=== PATIENT | female | born 1960 | race Caucasian/White ===

== ENCOUNTER 2020-03-10 17:12 | Outpatient (REF) | payer MEDICAID, SELFPAY | END 2020-03-10 17:13 | disposition home or self-care (01) | LOC: HO.LAB 17:12 | PROVIDERS: PCP Internal Medicine; Visit Provider Internal Medicine | DX: Z20.828 Contact with and (suspected) exposure to other viral communicable diseases (principal) | CPT/HCPCS: 87635 ==

== ENCOUNTER 2020-04-13 11:21 | Outpatient (REF) | payer MEDICAID, SELFPAY | END 2020-04-13 11:22 | disposition home or self-care (01) | LOC: HO.LAB 11:21 | PROVIDERS: Visit Provider Internal Medicine | DX: Z20.828 Contact with and (suspected) exposure to other viral communicable diseases (principal) | CPT/HCPCS: C9803; U0003 ==

== ENCOUNTER 2020-09-22 13:24 | Outpatient (REF) | payer MEDICAID, SELFPAY ==
--- NOTE | ~2020-09-22 | XR_ITS ---
EXAMINATION: XR RIGHT ANKLE AND RIGHT SHOULDER CLINICAL INFORMATION: Pain. COMPARISON: None. TECHNIQUE: 3-view right ankle and 4-view right shoulder. FINDINGS: There is no evidence of acute fracture or dislocation of the right ankle. Right ankle mortise appears intact. No significant soft tissue swelling seen. There is a calcaneal spur site of insertion of the Achilles tendon. There is no evidence of acute fracture or dislocation of the right shoulder. There is calcific tendinitis present. Glenohumeral joint appears unremarkable. No significant abnormality of the acromioclavicular joint. No widening of the coracoclavicular space is seen. XR/XR ankle RT min 3V IMPRESSION: No significant bony abnormality of the right ankle identified. Calcific tendinitis of the right shoulder.
--- NOTE | ~2020-09-22 | XR_ITS ---
EXAMINATION: XR RIGHT ANKLE AND RIGHT SHOULDER CLINICAL INFORMATION: Pain. COMPARISON: None. TECHNIQUE: 3-view right ankle and 4-view right shoulder. FINDINGS: There is no evidence of acute fracture or dislocation of the right ankle. Right ankle mortise appears intact. No significant soft tissue swelling seen. There is a calcaneal spur site of insertion of the Achilles tendon. There is no evidence of acute fracture or dislocation of the right shoulder. There is calcific tendinitis present. Glenohumeral joint appears unremarkable. No significant abnormality of the acromioclavicular joint. No widening of the coracoclavicular space is seen. XR/XR shoulder RT min 2V IMPRESSION: No significant bony abnormality of the right ankle identified. Calcific tendinitis of the right shoulder.
== END 2020-09-22 13:25 | disposition home or self-care (01) ==
LOC: HO.XRAY 13:24
PROVIDERS: PCP Internal Medicine; Visit Provider Internal Medicine
DX: M25.511 Pain in right shoulder (principal); M25.571 Pain in right ankle and joints of right foot
CPT/HCPCS: 73030; 73610

== ENCOUNTER 2020-11-09 08:46 | Outpatient (REF) | payer MEDICAID, SELFPAY ==
--- NOTE | ~2020-11-09 | MM_ITS ---
EXAMINATION: MM SCREENING DIGITAL BREAST TOMOSYNTHESIS, BILATERAL CLINICAL INFORMATION: Screening. Asymptomatic. The lifetime risk of breast cancer based on the Tyrer-Cuzick Model is 4%. COMPARISON: Mammography: 02/28/2019, 04/13/2017, 08/05/2016; targeted right breast ultrasound 04/13/2017. TECHNIQUE: Digital breast tomosynthesis is performed in both the craniocaudal and mediolateral oblique views along with computer-aided detection (CAD). Synthesized 2D images are generated from the tomosynthesis. Additional exaggerated right CC view is provided. FINDINGS: The breasts are heterogeneously dense, which may obscure small masses (ACR BI-RADS breast composition Category c). There are no significant masses, abnormal calcifications, or other abnormalities. Parenchymal pattern is similar to prior studies. Again, there is a benign heavily calcified nodule posterior 7:00 left breast consistent with degenerating fibroadenoma. There are fibrocystic changes again noted outer right breast. The axilla and skin contours are unremarkable. MM/MM tomosynthesis screening BI IMPRESSION: No significant changes from prior exams. ASSESSMENT: BI-RADS 2: Benign RECOMMENDATION: Routine annual mammography screening. This patient's information was entered into a reminder system with a target due date for their next mammogram.
== END 2020-11-09 08:47 | disposition home or self-care (01) ==
LOC: HO.MAMMO 08:46
PROVIDERS: Visit Provider Internal Medicine
DX: Z12.31 Encounter for screening mammogram for malignant neoplasm of breast (principal)
CPT/HCPCS: 77063; 77067

== ENCOUNTER 2021-11-10 09:43 | Outpatient (REF) | payer MEDICAID, SELFPAY ==
--- NOTE | ~2021-11-10 | MM_ITS ---
EXAMINATION: MM SCREENING DIGITAL BREAST TOMOSYNTHESIS, BILATERAL CLINICAL INFORMATION: Screening. Asymptomatic. The lifetime risk of breast cancer based on the Tyrer-Cuzick Model is 4%. COMPARISON: Mammography: 11/09/2020, 02/28/2019, 04/13/2017, 08/05/2016 TECHNIQUE: Digital breast tomosynthesis is performed in both the craniocaudal and mediolateral oblique views along with computer-aided detection (CAD). Synthesized 2D images are generated from the tomosynthesis. FINDINGS: The breasts are heterogeneously dense, which may obscure small masses (ACR BI-RADS breast composition Category c). Parenchymal pattern is similar to prior exams. There is no interval mass or architectural abnormality or abnormal calcifications. Benign heavily calcified nodule posterior 7:00 left breast is consistent with degenerating fibroadenoma and stable. The axilla and skin contours are unremarkable. MM/MM tomosynthesis screening BI IMPRESSION: No mammographic evidence of malignancy. ASSESSMENT: BI-RADS 2: Benign RECOMMENDATION: Routine annual mammography screening. This patient's information was entered into a reminder system with a target due date for their next mammogram.
== END 2021-11-10 09:44 | disposition home or self-care (01) ==
LOC: HO.MAMMO 09:43
PROVIDERS: Visit Provider Internal Medicine
DX: Z12.31 Encounter for screening mammogram for malignant neoplasm of breast (principal)
CPT/HCPCS: 77063; 77067

== ENCOUNTER → 2022-03-10 11:01 | Outpatient (BNVA) | payer MEDICAID, SELFPAY | PROVIDERS: PCP Internal Medicine; Visit Provider Physician Assistant | DX: M75.31 Calcific tendinitis of right shoulder (principal) | CPT/HCPCS: 99202 ==

== ENCOUNTER 2022-05-06 09:04 | Emergency (ER) | payer MEDICAID, SELFPAY ==
[2022-05-06 09:26] VITALS: BP 145/74; PULSE 125; RESP 20; TEMP 37.6; O2SAT 99; BMI 24.2
[2022-05-06 09:42] LABS: MANUAL DIFF FLAG NO
[2022-05-06 09:44] LABS: Basophils Percent Auto 0.3 % (0-2); Eosinophils Percent Auto 0.2 % (0-4); Hematocrit 37.5 % (37.0-47.0); Hemoglobin 12.6 g/dl (12.0-16.0); Imm Gran Abs Auto 0.01 X10*3/uL (0.00-0.03); Imm Gran Pct Auto 0.2 % (0.0-0.4); Lymphocytes Absolute Auto 1.5 X10*3/uL (1.2-4.9); Lymphocytes Percent Auto 24.3 % (20-40); Mean Corpuscular HGB Conc 33.6 g/dl (31.0-35.0); Mean Corpuscular Hemoglobin 27.6 pg (27.0-33.0); Mean Corpuscular Volume 82.1 fL (80.0-98.0); Mean Platelet Volume 9.4 fL (9.4-12.3); Monocytes Absolute Auto 0.7 X10*3/uL (0.1-1.2); Monocytes Percent Auto 11.7 % (2-11); Neutrophils Absolute Auto 3.9 x10*3/uL (2.0-8.3); Neutrophils Percent Auto 63.3 % (45-73); Platelet Count 344 X10*3/uL (160-400); Red Blood Count 4.57 X10*6/uL (4.20-5.50); Red Cell Distribution Width 12.5 % (11.0-16.0); White Blood Count 6.2 X10*3/uL (4.8-10.8)
[2022-05-06 10:00] LABS: IDNOW Serial# BCCEAD1C; Influenza A Negative (Negative); Influenza B2 Negative (Negative)
[2022-05-06 10:01] LABS: COVID-19 Test Negative (Negative); IDNOW Serial# 16C4AD1C
[2022-05-06 10:05] LABS: Anion Gap 13 (12-20); Blood Urea Nitrogen 10 mg/dL (9-16); Calcium 9.2 mg/dL (8.4-10.2); Carbon Dioxide 23 mmol/L (22-29); Chloride 102 mmol/L (96-108); Estimated Glomerular Filt Rate > 60; Glucose Random 159 mg/dL (60-115); Potassium 3.7 mmol/L (3.3-5.1); Sodium 134 mmol/L (135-145)
[2022-05-06 10:28] VITALS: BP 124/75; PULSE 106; RESP 14; TEMP 37; O2SAT 98
--- NOTE | 2022-05-06 10:55 | ED.GENADULT ---
HPI - General Adult General Chief complaint: General Medical Stated complaint: Head Back Pain Time Seen by Provider: 05/06/22 10:33 Source: patient and technician anatomic pathology Mode of arrival: ambulatory Limitations: language barrier History of Present Illness HPI narrative: 62-year-old female with a history of osteoporosis, osteoarthritis presents to headache, tactile temperature, dry eyes, cough, mouth dry, body aches, fatigue since yesterday. Also a rash to her right buttocks which has been there for several weeks. Patient denies any shortness of breath, chest pain, vomiting, diarrhea, neck pain or neck stiffness. Related Data Home Medications Medication Instructions Recorded Confirmed diclofenac sodium 1 % topical gel 2 g topical TID 03/10/22 ibuprofen 400 mg tablet 400 - 800 mg PO Q6-8H PRN 03/10/22 Previous Rx's Medication Instructions Recorded clotrimazole 1 % topical cream 1 appl topical BID 4 weeks #30 05/06/22 grams Allergies Allergy/AdvReac Type Severity Reaction Status Date / Time No Known Allergies Allergy Verified 05/06/22 09:30 [No Known Allergies*] Review of Systems Review of Systems: Yes all other systems are reviewed and are negative Constitutional: Constitutional: Reports no additional constitutional complaints, Reports body ache(s), Denies chills, Denies fever(s), Reports headache(s) and Denies weakness Eyes: Eyes: Reports no additional eye complaints and Denies change in vision ENT: Reports system reviewed and no additional complaints, except as documented, Denies dizziness, Reports headache(s), Reports nasal congestion, Denies nasal discharge, Denies neck pain and Denies sore throat Cardiovascular: Cardiovascular: Reports no additional cardiovascular complaints, Denies chest pain, Denies leg edema and Denies dyspnea Respiratory: Respiratory: Reports no additional respiratory complaints, Reports cough and Denies dyspnea Gastrointestinal: Gastrointestinal: Reports no additional gastrointestinal complaints, Denies abdominal pain, Denies diarrhea, Denies nausea and Denies vomiting Genitourinary: Genitourinary: Reports no additional female genitourinary complaints and Denies urinary incontinence Musculoskeletal: Musculoskeletal: Reports no additional musculoskeletal complaints, Denies back pain, Denies arthralgias, Denies joint swelling, Denies neck pain, Denies numbness and Denies tingling Integumentary/Breasts: Skin/Breast: Reports system reviewed and no additional complaints, except as docu and Denies rash Neurologic: Reports system reviewed and no additional complaints, except as documented, Denies dizziness, Reports headache(s), Denies numbness, Denies tingling and Denies weakness PMFSH Past Medical History Attestation statement: The following information was validated with the patient. 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 Physical Exam ED Vital Signs: Vital Signs - 24 hr 05/06/22 09:26 05/06/22 10:28 Temperature 99.7 F 98.6 F Pulse Rate 125 H 106 H Respiratory Rate 20 14 Blood Pressure 145/74 H 124/75 Pulse Oximetry 99 98 Oxygen Delivery Method Room Air Room Air BMI result Body Mass Index 24.2 Const General: cooperative, healthy appearing and comfortable Orientation/consciousness: patient oriented x3 Limitations: no limitations HENMT Head: Yes normal to inspection Ears: hearing grossly normal bilaterally and TM's normal bilaterally General nose exam: Normal external nose present Face and sinus: Yes normal facial exam Mouth: Normal oral and palatal mucosa present Throat: Yes posterior oropharynx normal, Yes tonsils normal and Yes uvula midline Eyes General: appearance normal, both eyes and all related structures Pupils: Equal, round and reactive pupils present Neck Neck: Yes normal visual inspection, Yes full ROM, Yes no lymphadenopathy and Yes no meningeal signs Chest Chest palpation & inspection: normal inspection of the chest Resp Effort & Inspection: normal respiratory effort Auscultation: clear to auscultation bilaterally Cardio Rate: regular rate Rhythm: regular rhythm Peripheral pulses: Peripheral pulses 2+ throughout GI Inspection: Yes normal to inspection Palpation (GI): Soft to palpation and nontender General: Yes no CVA tenderness Back/Spine/Pelvis Back: no CVA tenderness Thoracic/Lumbar Spine: thoracic and lumbar spine normal to inspection Skin Other: To the right buttocks there is a circular lesion with clear demarcation lines around the border and a central area of scaling Neuro General: patient oriented x3, moves all extremities and no meningeal signs Cranial nerves: Yes Equal, round and reactive pupils present and Yes Midline tongue present Cognition (Neuro): normal cognition Gait exam (Neuro): Normal gait present Motor exam (neuro): 5/5 motor strength present throughout Sensory Exam: Normal double simultaneous stimulation for sensation Extrem General: Yes normal to inspection, Yes no pedal edema and Yes no calf tenderness Course Course Course Narrative: Labs are unremarkable. Viral testing is negative. Likely viral syndrome. Recommend supportive care at home. Reviewed worrisome signs symptoms of when to return to the emergency room. Comfortable plan for discharge home. Medical Decision Making Medical Decision Making [facility] Narrative: This is a 62-year-old female who presents with flu-like symptoms since yesterday. On arrival vitals are stable. Afebrile. Lungs are clear. Neck is supple, no meningeal signs or lymphadenopathy. Abdomen soft nontender. Overall nontoxic appearing. Will check labs, viral testing. Patient also concern of a rash of her right buttocks which is consistent with tinea. Patient prescribed topical antifungal Differential Diagnoses: Differential diagnosis (Viral syndrome) Lab Attestation: I reviewed the patient's lab results. Discharge Plan Discharge Clinical Impression: Acute viral syndrome, Tinea Patient Disposition: Home, Self-Care Instructions: Viral Syndrome (ED), Skin Yeast Infection (ED) Additional Instructions: Las pruebas de gripe y COVID son negativas Contin?e con Motrin o Tylenol seg?n sea necesario Aumentar los l?quidos en casa Aplicar la crema t?pica en la rehana afectada Prescriptions: New clotrimazole 1 % cream 1 appl topical BID 28 Days Qty: 30 0RF No Action ibuprofen 400 mg tablet 400 - 800 mg PO Q6-8H PRN diclofenac sodium 1 % gel 2 g topical TID Referrals: Reanna Rossi MD [Primary Care Provider] - 5 days (for persistent symptoms ) Stand Alone Forms: Work/School Release Interventions: ED Discharge Assessment Last Done: 05/06/22 11:26 Discharge Date/Time: 05/06/22 11:27 Print Language: Vietnamese
== END 2022-05-06 11:27 | disposition home or self-care (01) ==
PROVIDERS: Emergency Provider Emergency Medicine Emergency Medical Services; PCP Internal Medicine
DX: B34.9 Viral infection, unspecified (principal); R51.9 Headache, unspecified; B35.9 Dermatophytosis, unspecified; M54.2 Cervicalgia; Z20.822 Contact with and (suspected) exposure to COVID-19; Z79.899 Other long term (current) drug therapy
CPT/HCPCS: 80048; 85025; 87502; 87635; 99283; 99284

== ENCOUNTER 2022-06-15 10:15 | Outpatient (REF) | payer MEDICAID, SELFPAY ==
--- NOTE | ~2022-06-15 | MM_ITS ---
EXAMINATION: BONE DENSITOMETRY CLINICAL INDICATION: Osteoporosis. COMPARISON: Baseline BD dated 11/16/2017. TECHNIQUE: Using a GlassUp DXA System (software version: 13.1) manufactured by [employer], dual-energy x-ray absorptiometry was performed of the lumbar spine and left hip. The images are of good technical quality. Summary results are attached. FINDINGS: AP SPINE L1-L4: Current: BMD 1.010 g/cm2, Z-score 0.1, T-score -1.4, osteopenia, 6.8% decrease from baseline (<5% change is not significant). Baseline: BMD 1.084 g/cm2. LEFT FEMUR, NECK: Current: BMD 0.845 g/cm2, Z-score 0.1, T-score -1.4, osteopenia. Baseline: BMD 0.867 g/cm2. LEFT FEMUR, TOTAL: Current: BMD 0.854 g/cm2, Z-score -0.1, T-score -1.2, osteopenia, 2.0% decrease from baseline (<5% change is not significant). Baseline: BMD 0.871 g/cm2. IDENTIFIED RISK FACTORS: Frontal hip fracture. Secondary osteoporosis (early menopause). HISTORY OF FRACTURE: None listed. MEDICATIONS: None listed. MM/XR DEXA axial skeleton IMPRESSION: 1. DIAGNOSIS: Osteopenia based on the lowest T-score value of -1.4 in the lumbar spine and femoral neck applying World Health Organization criteria. 2. 10-YEAR FRACTURE RISK PREDICTION, FRAX: Major osteoporotic fracture (clinical spine, forearm, hip or shoulder) 8.3%. Hip fracture 0.4%. 3. Treatment Recommendations: NOF guidelines recommend consideration for treatment in postmenopausal women and men age 50 and older presenting with the following: -A hip or vertebral (clinical or morphometric) fracture. -T-score less than or equal to -2.5 at the femoral neck or spine after appropriate evaluation to exclude secondary causes. -Low bone mass at the hip or spine and a 10-year fracture probability by FRAX of greater than or equal to 3% for hip fracture or greater than or equal to 20% for major osteoporotic fracture based on the [place] adapted WHO algorithm. 4. Other Recommendations: All treatment decisions require clinical judgment and consideration of individual patient factors, including patient preferences, comorbidities, previous drug use, risk factors not captured in the FRAX model (e.g. frailty, falls, vitamin D deficiency, increased bone turnover, interval significant decline in bone density) and possible under or overestimation of fracture risk by FRAX. Additional medical evaluation for secondary cause of low bone mineral density may be appropriate. FUTURE SCAN RECOMMENDATION: People with diagnosed cases of osteoporosis or at high risk for fracture should have regular bone mineral density tests. For patients eligible for Medicare, routine testing is allowed once every 2 years. The testing frequency can be increased to one year for patients who have rapidly progressing disease, those who are receiving or discontinuing medical therapy to restore bone mass, or have additional risk factors.
== END 2022-06-15 10:16 | disposition home or self-care (01) ==
LOC: HO.MAMMO 10:15
PROVIDERS: PCP Internal Medicine; Visit Provider Internal Medicine
DX: Z13.820 Encounter for screening for osteoporosis (principal); Z78.0 Asymptomatic menopausal state; M81.0 Age-related osteoporosis without current pathological fracture
CPT/HCPCS: 77080

== ENCOUNTER 2023-02-27 08:35 | Outpatient (REF) | payer MEDICAID, SELFPAY ==
[2023-02-27 12:01] LABS: Estimated Average Glucose 140 mg/dL; Hemoglobin A1c % 6.5 % (<6.0)
[2023-02-27 12:15] LABS: Cholesterol 155 mg/dL (<200); HDL Cholesterol 40 mg/dL (>40); LDL Cholesterol Calculated 84 mg/dL (<100); Triglycerides 159 mg/dL (<150)
[2023-02-27 12:41] LABS: Anion Gap 14 (12-20); Blood Urea Nitrogen 12 mg/dL (9-16); Calcium 9.1 mg/dL (8.4-10.2); Carbon Dioxide 23 mmol/L (22-29); Chloride 106 mmol/L (96-108); Estimated Glomerular Filt Rate > 60; Glucose Random 109 mg/dL (60-115); Potassium 4.5 mmol/L (3.3-5.1); Sodium 138 mmol/L (135-145)
[2023-02-27 13:06] LABS: Reflex LDLD? No
== END 2023-02-27 08:36 | disposition home or self-care (01) ==
LOC: HO.HHCL 08:35
PROVIDERS: Visit Provider Internal Medicine
DX: R73.01 Impaired fasting glucose (principal); E78.2 Mixed hyperlipidemia
CPT/HCPCS: 36415; 80048; 80061; 83036

== ENCOUNTER 2023-11-20 13:38 | Outpatient (REF) | payer OTHER, SELFPAY ==
[2023-11-22 12:23] LABS: HPV mRNA E6/E7 Not Detected (Not Detected)
== END 2023-11-20 13:39 | disposition home or self-care (01) ==
LOC: HO.LNP 13:38
PROVIDERS: PCP Internal Medicine; Visit Provider Obstetrics & Gynecology
DX: Z01.419 Encounter for gynecological examination (general) (routine) without abnormal findings (principal); N94.89 Other specified conditions associated with female genital organs and menstrual cycle
CPT/HCPCS: 87624; 88175; 99386

== ENCOUNTER 2023-11-20 13:38 | Outpatient (AMB) | payer OTHER, SELFPAY ==
--- NOTE | 2023-11-20 13:57 | MHC.OFFVIS ---
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 No complaints. Last Pap/HPV was in 2018 negative Last Mammogram was in 11/17 was BI-RADS 2 No previous screening Colonoscopy Last DEXA scan was done in 06/20 was in the low risk category with no evidence of osteoporosis PFSH Medical History Hyperlipidemia Seasonal allergic reaction Surgical History Hx of tubal ligation Family History Mother HTN (hypertension) Diabetes Sister Kidney disease Father Lung cancer Throat cancer Social History Household Members: Spouse Household Members Other:: daughter Housing: Apartment Alcohol intake: current Alcohol intake frequency: holidays/special occasions only Patient Tobacco Use Status: Never used Tobacco Current occupational status: employed 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 Sexual orientation: Straight/Heterosexual Gender identity: Female Female Reproductive History Menstrual Date of Mammogram: 11/10/21 History of abnormal mammogram: No Review of Systems Const All systems reviewed & are unremarkable except as noted in HPI and below Card Reports as per HPI Resp Reports as per HPI GI Reports as per HPI and Reports no additional complaints Reports as per HPI Physical Exam Vital Signs: BMI result Body Mass Index 24.2 Const General: cooperative, healthy appearing and comfortable Chest Chest palpation & inspection: normal inspection of the chest and normal palpation of entire chest wall Breast/axilla inspection: normal inspection of the breasts and normal inspection of the axillae Breast/axilla palpation: normal palpation of the breasts, normal palpation of the axillae and no axillary lymphadenopathy Resp Effort & Inspection: normal respiratory effort Auscultation: clear to auscultation bilaterally Percussion: percussion normal Cardio Palpation: normal PMI Rate: regular rate Rhythm: regular rhythm Heart sounds: no murmurs and no rubs Peripheral pulses: Peripheral pulses 2+ throughout GI Inspection: Yes normal to inspection Palpation (GI): Soft to palpation, nontender, no guarding, not rigid and No hepatosplenomegaly present Percussion: Yes normal to percussion Auscultation: normal bowel sounds Rectal Exam - Female: deferred General: Yes bladder normal to palpation External Female Exam: No lesion Speculum Exam - Vagina: normal appearance of the vagina, normal palpation, normal vaginal discharge and not erythematous Speculum Exam - Cervix: normal appearance of the cervix and normal palpation Bimanual exam- vagina & uterus: normal bimanual exam, normal palpation, uterine size normal, bladder normal to palpation, consistency normal and normal palpation Bimanual Exam- Adnexa, other: adnexae abnormal (Right adnexal fullness, left adnexa within normal), no masses and no tenderness Assessment & Plan Assessment & Plan (1) Well woman exam: Code(s): Z01.419 - Encounter for gynecological examination (general) (routine) without abnormal findings Category: Medical Plan: Co testing done. Counseled the patient about the recommended dietary allowance of 1200 mg of Calcium & 600 IU of vitamin D. Mammogram ordered. The patient was referred to GI for screening colonoscopy . The patient was instructed to perform monthly self-breast exams and schedule annual exam in a year. All questions answered and the patient verbalized understanding. (2) Adnexal fullness: Comment: Right side Code(s): N94.9 - Unspecified condition associated with female genital organs and menstrual cycle Category: Medical Plan: Discussed with the patient the finding on pelvic exam showing right adnexal fullness, will order pelvic ultrasound. Instructions given the patient to schedule an ultrasound follow-up appointment. All questions answered, the patient verbalized understanding. Orders: Orders MM tomosynthesis screening BI Today Z12.31 - Encounter for screening mammogram for malignant neoplasm of breast US pelvic and transvaginal Today N94.9 - Unspecified condition associated with female genital organs and menstrual cycle Referrals Gastroenterology Referral Z12.11 - Encounter for screening for malignant neoplasm of colon Coding Level of Care Code New Pt Prev Care 40-64y([id number]) Diagnoses Well woman exam Z01.419 Adnexal fullness N94.9
[2023-11-20 14:00] VITALS: BP 118/72; BMI 24.2
== END 2023-11-20 14:31 | disposition home or self-care (01) ==
PROVIDERS: PCP Internal Medicine; Visit Provider Obstetrics & Gynecology
DX: Z01.419 Encounter for gynecological examination (general) (routine) without abnormal findings (principal); N94.9 Unspecified condition associated with female genital organs and menstrual cycle
CPT/HCPCS: 99386

== ENCOUNTER 2023-11-22 09:47 | Outpatient (REF) | payer OTHER, SELFPAY ==
--- NOTE | ~2023-11-22 | XR_ITS ---
EXAMINATION: XR CERVICAL SPINE XR RIGHT SHOULDER CLINICAL INFORMATION: Right arm and shoulder weakness and pain. History of neck pain, rule out DJD. Patient had difficulty with open mouth position best attempts made. Patient states she fell down 2 years ago. TECHNIQUE: 4 views of the right shoulder. 6 views of the cervical spine. COMPARISON: 09/22/2020 right shoulder. FINDINGS: CERVICAL SPINE: Straightening of the normal cervical lordosis. Mild multilevel cervical spondylosis with mild loss of disc space height at C5-C6. Bilateral neural foramina are grossly patent. RIGHT SHOULDER: Amorphous calcifications adjacent to the greater tuberosity are characteristic of calcific tendinitis. Mild degenerative changes in the glenohumeral joint. Mild degenerative changes in the acromioclavicular joint. XR/XR shoulder RT min 2V IMPRESSION: 1. Mild multilevel cervical spondylosis with mild loss of disc space height at C5-C6. 2. Amorphous calcifications adjacent to the greater tuberosity are characteristic of calcific tendinitis.
--- NOTE | ~2023-11-22 | XR_ITS ---
EXAMINATION: XR CERVICAL SPINE XR RIGHT SHOULDER CLINICAL INFORMATION: Right arm and shoulder weakness and pain. History of neck pain, rule out DJD. Patient had difficulty with open mouth position best attempts made. Patient states she fell down 2 years ago. TECHNIQUE: 4 views of the right shoulder. 6 views of the cervical spine. COMPARISON: 09/22/2020 right shoulder. FINDINGS: CERVICAL SPINE: Straightening of the normal cervical lordosis. Mild multilevel cervical spondylosis with mild loss of disc space height at C5-C6. Bilateral neural foramina are grossly patent. RIGHT SHOULDER: Amorphous calcifications adjacent to the greater tuberosity are characteristic of calcific tendinitis. Mild degenerative changes in the glenohumeral joint. Mild degenerative changes in the acromioclavicular joint. XR/XR cervical spine 4V IMPRESSION: 1. Mild multilevel cervical spondylosis with mild loss of disc space height at C5-C6. 2. Amorphous calcifications adjacent to the greater tuberosity are characteristic of calcific tendinitis.
== END 2023-11-22 09:48 | disposition home or self-care (01) ==
LOC: HO.HHCX 09:47
PROVIDERS: Visit Provider Internal Medicine
DX: R29.898 Other symptoms and signs involving the musculoskeletal system (principal)
CPT/HCPCS: 72050; 73030

== ENCOUNTER 2023-11-28 14:06 | Outpatient (REF) | payer OTHER, SELFPAY ==
--- NOTE | ~2023-11-28 | MM_ITS ---
EXAMINATION: MM SCREENING DIGITAL BREAST TOMOSYNTHESIS, BILATERAL CLINICAL INFORMATION: Screening. Asymptomatic. COMPARISON: Mammography: This study is compared with prior exams dating back to 2018. TECHNIQUE: Digital breast tomosynthesis is performed in both the craniocaudal and mediolateral oblique views along with computer-aided detection (CAD). Synthesized 2D images are generated from the tomosynthesis. FINDINGS: The breasts are heterogeneously dense, which may obscure small masses (ACR BI-RADS breast composition Category c). There are no significant masses, abnormal calcifications, or other abnormalities. There is a single, unchanged, coarse, benign calcification in the 6:00 region of the left breast. MM/MM tomosynthesis screening BI IMPRESSION: No mammographic evidence of malignancy. ASSESSMENT: BI-RADS BI-RADS 2 - Benign Findings RECOMMENDATION: Routine annual mammography screening. 1 year F/U This examination should not preclude the clinical evaluation of a suspicious palpable abnormality. This patient's information was entered into a reminder system with a target due date for their next mammogram.
== END 2023-11-28 14:07 | disposition home or self-care (01) ==
LOC: HO.MAMMO 14:06
PROVIDERS: PCP Internal Medicine; Visit Provider Obstetrics & Gynecology
DX: Z12.31 Encounter for screening mammogram for malignant neoplasm of breast (principal)
CPT/HCPCS: 77063; 77067

== ENCOUNTER → 2023-11-28 14:30 | Outpatient (BNV) | payer OTHER, SELFPAY | PROVIDERS: PCP Internal Medicine; Visit Provider Radiology Diagnostic Radiology | DX: Z12.31 Encounter for screening mammogram for malignant neoplasm of breast (principal) | CPT/HCPCS: 77063; 77067 ==

== ENCOUNTER 2023-12-11 15:42 | Outpatient (REF) | payer OTHER, SELFPAY ==
--- NOTE | ~2023-12-11 | US_ITS ---
EXAMINATION: US PELVIS COMPLETE CLINICAL INFORMATION: Adnexal fullness; postmenopausal patient. COMPARISON: None. TECHNIQUE: Transabdominal imaging was performed. The patient declined transvaginal imaging. FINDINGS: The uterus is of normal size and echogenicity, measuring 8.9 x 5.8 x 6.3 cm. The uterus is anteverted and anteflexed. A regular, homogeneous endometrium is identified measuring 0.3 cm. FIBROIDS: There is 1 fibroid seen. 1. Location: Fundus, myometrial. Size: 6.6 x 5.3 x 7.0 cm. Fibroid characteristics: Heterogeneous echotexture, with calcifications. Both ovaries are nonvisualized. There is no pelvic free fluid. No adnexal mass is seen. US/US pelvic complete IMPRESSION: 1. A large uterine fibroid is seen. 2. The bilateral ovaries are nonvisualized.
== END 2023-12-11 15:43 | disposition home or self-care (01) ==
LOC: HO.US 15:42
PROVIDERS: PCP Internal Medicine; Visit Provider Obstetrics & Gynecology
DX: N94.9 Unspecified condition associated with female genital organs and menstrual cycle (principal)
CPT/HCPCS: 76856

== ENCOUNTER 2024-01-03 13:21 | Outpatient (REF) | payer OTHER, SELFPAY ==
[2024-01-03 15:43] LABS: Blood Urea Nitrogen 14 mg/dL (9-16); Estimated Glomerular Filt Rate > 60
== END 2024-01-03 13:22 | disposition home or self-care (01) ==
LOC: HO.LAB 13:21
PROVIDERS: PCP Internal Medicine; Visit Provider Obstetrics & Gynecology
DX: D25.9 Leiomyoma of uterus, unspecified (principal); N94.9 Unspecified condition associated with female genital organs and menstrual cycle
CPT/HCPCS: 36415; 82565; 84520; 99212

== ENCOUNTER 2024-01-03 13:21 | Outpatient (AMB) | payer OTHER, SELFPAY ==
[2024-01-03 13:37] VITALS: BMI 24.0
--- NOTE | 2024-01-03 13:37 | MHC.OFFVIS ---
Vital Signs 01/03/24 13:37 Height 4 ft 11 in Weight 119 lb 0.794 oz BMI 24.0 Intake Visit Reasons: Ultra sound follow up Cnc Wood Lathe Operator Required: Yes Cnc Wood Lathe Operator Language: Molding Associate Services: Cnc Wood Lathe Operator Present (in person) Cnc Wood Lathe Operator Name: Livia KING Information Interpreted: non-clinical & clinical Accompanied by: Self / Same As Patient Allergies No Known Allergies [No Known Allergies*] Allergy (Verified 01/03/24 13:37) Post menopausal: Yes HPI Comments Details: Presenting for ultrasound follow-up which showed the following: The uterus is of normal size and echogenicity, measuring 8.9 x 5.8 x 6.3 cm. The uterus is anteverted and anteflexed. A regular, homogeneous endometrium is identified measuring 0.3 cm. FIBROIDS: There is 1 fibroid seen. 1. Location: Fundus, myometrial. Size: 6.6 x 5.3 x 7.0 cm. Fibroid characteristics: Heterogeneous echotexture, with calcifications. Both ovaries are nonvisualized. There is no pelvic free fluid. No adnexal mass is seen. 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 Explained to the patient calcification suggested the mass has undergone necrosis this is typically seen in fibroids that have outgrown the blood supply, this could be sometimes associated with malignancy and potential malignant lesions. In addition, discussed with the patient there is no previous imaging to compare whether this is a new large growing myoma or a previously larger myoma that has shrunken in size over the last few years. Discussed with the patient the findings on pelvic ultrasound & the risk of myosarcoma; will order pelvic MRI. Instructions given the patient to schedule an MRI of the pelvis and a follow-up appointment elias. All questions answered the patient verbalized understanding Orders: Orders MR pelvis wo/w con Today D25.9 - Leiomyoma of uterus, unspecified Coding Level of Care Code Est Pt Level 3 (56587) Diagnoses Uterine myoma D25.9
== END 2024-01-03 13:56 | disposition home or self-care (01) ==
PROVIDERS: PCP Internal Medicine; Visit Provider Obstetrics & Gynecology
DX: D25.9 Leiomyoma of uterus, unspecified (principal)
CPT/HCPCS: 99213

== ENCOUNTER 2024-02-01 10:31 | Outpatient (AMB) | payer OTHER, SELFPAY ==
[2024-02-01 10:44] VITALS: BP 120/72; BMI 24.0
--- NOTE | 2024-02-01 10:44 | A.OFFVIS_ITS ---
Vital Signs 02/01/24 10:44 Height 4 ft 11 in Weight 119 lb 0.794 oz BMI 24.0 BP 120/72 Intake Visit Reasons: MRI results Kitchen Steward/Stewardess Required: Yes Kitchen Steward/Stewardess Language: Power And Recovery Supervisor Services: Kitchen Steward/Stewardess Present (in person) Kitchen Steward/Stewardess Name: Livia KING Information Interpreted: non-clinical & clinical Accompanied by: Self / Same As Patient Allergies No Known Allergies [No Known Allergies*] Allergy (Verified 02/01/24 10:47) Post menopausal: Yes HPI Comments Details: The patient is presenting for pelvic MRI follow-up. On pelvic exam a pelvic mass was detected so a pelvic ultrasound was done on 12/11/2023 which showed the following The uterus is of normal size and echogenicity, measuring 8.9 x 5.8 x 6.3 cm. The uterus is anteverted and anteflexed. A regular, homogeneous endometrium is identified measuring 0.3 cm. FIBROIDS: There is 1 fibroid seen. 1. Location: Fundus, myometrial. Size: 6.6 x 5.3 x 7.0 cm. Fibroid characteristics: Heterogeneous echotexture, with calcifications. Both ovaries are nonvisualized. There is no pelvic free fluid. No adnexal mass is seen. Pelvic MRI was done which showed the following: Uterus anteverted shows at least 10 fibroids, the largest in the anterior uterus measuring 5.9 x 5.4 x 5.1 cm. Just inferior to this is another fibroid measuring 4 cm in size, 2nd largest. Fibroids are predominantly hypointense in signal on T2 and isointense on T1. Several of the small peripheral fibroids are likely calcified given to a hypointense T1 signal. The fibroids are intramural uterine and subserosal in location. The endometrial stripe is displaced to the left from mass effect, and measures 1 mm in thickness. Postcontrast images demonstrate hypo enhancement of majority of the fibroids which are likely infarct. There are varying degrees of enhancement of the fibroids which enhances less than the myometrium. Several of the fibroids may be partially infarcted given the very minimal internal enhancement.... 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 Sexual orientation: Straight/Heterosexual Gender identity: Female Review of Systems Const All systems reviewed & are unremarkable except as noted in HPI and below Reports as per HPI and Reports no additional complaints GI Reports no additional complaints Reports no additional complaints Physical Exam Vital Signs: Last Vital Signs BP 120/72 02/01/24 10:44 BMI result Body Mass Index 24.0 Assessment & Plan Assessment & Plan (1) Uterine myoma: Comment: With infarction on pelvic MRI Code(s): D25.9 - Leiomyoma of uterus, unspecified Category: Medical Plan: Discussed with the patient the finding on MRI showing multiple myomas largest measuring 5.9 cm likely infarcted and several of the fibroids may be partially infarcted . Explained to the patient that this is most typically seen in fibroids that have outgrown their blood supply especially in postmenopausal patients as blood flow to the uterus regresses. In addition, plan to the patient that the presence of necrotic areas and high necrosis percentage could be associated with a malignant/potentially malignant lesion. Discussed with the patient options of treatment for myomas including: Serial ultrasounds periodically to follow-up on the size of the myoma versus surgical treatment including hysterectomy. All pros and cons, risks and benefits of all options were discussed with the patient. The patient understands that delay in surgical treatment in case of myosarcoma can affect her prognosis, after further discussion, the patient decided to go have a consult with acquisitions editor Oncology guarding the above findings. Referral to [facility] and acquisitions editor Oncology was placed. Instructed the patient to call our office back in case a referral appointment is not scheduled, missed or canceled so that we will assist on rescheduling another appointment, the patient verbalized understanding agreed with the plan. Orders: Referrals Gynecologic Oncology Referral D25.9 - Leiomyoma of uterus, unspecified Coding Level of Care Code Est Pt Level 3 (76787) Diagnoses Uterine myoma D25.9
== END 2024-02-01 13:02 | disposition home or self-care (01) ==
PROVIDERS: PCP Internal Medicine; Visit Provider Obstetrics & Gynecology
DX: D25.9 Leiomyoma of uterus, unspecified (principal)
CPT/HCPCS: 99213

== ENCOUNTER → 2024-02-01 10:31 | Outpatient (BNVA) | payer OTHER, SELFPAY | PROVIDERS: PCP Internal Medicine; Visit Provider Obstetrics & Gynecology | DX: D25.9 Leiomyoma of uterus, unspecified (principal) | CPT/HCPCS: 99212 ==

== ENCOUNTER 2024-03-28 10:22 | Outpatient (REF) | payer OTHER, SELFPAY ==
[2024-03-28 11:32] LABS: Anion Gap 10 (12-20); Blood Urea Nitrogen 11 mg/dL (9-16); Calcium 10.2 mg/dL (8.4-10.2); Carbon Dioxide 27 mmol/L (22-29); Chloride 106 mmol/L (96-108); Cholesterol 181 mg/dL (<200); Estimated Glomerular Filt Rate > 60; Glucose Random 124 mg/dL (60-115); HDL Cholesterol 41 mg/dL (>40); LDL Cholesterol Calculated 106 mg/dL (<100); Potassium 4.4 mmol/L (3.3-5.1); Sodium 139 mmol/L (135-145); Triglycerides 171 mg/dL (<150)
[2024-03-28 11:57] LABS: Vitamin D 25-OH Total 28.5 ng/mL (>30)
[2024-03-28 12:03] LABS: Reflex LDLD? No
== END 2024-03-28 10:23 | disposition home or self-care (01) ==
LOC: HO.HHCL 10:22
PROVIDERS: Visit Provider Internal Medicine
DX: R73.01 Impaired fasting glucose (principal); M77.8 Other enthesopathies, not elsewhere classified
CPT/HCPCS: 36415; 80048; 80061; 82306

== ENCOUNTER 2024-06-14 10:00 | Outpatient (AMB) | payer MEDICAID, SELFPAY ==
--- NOTE | 2024-06-14 10:11 | MHC.OFFVIS ---
Vital Signs 06/14/24 10:12 Height 4 ft 11 in Weight 120 lb 13.013 oz BMI 24.4 BP 144/82 H Blood Pressure Location Lt brachial Position Sitting Pulse 100 Pulse Source Pulse Oximeter Pulse Oximetry (%) 98 Oxygen Delivery Method Room Air Intake Visit Reasons: Colonoscopy Screening Intake Note: NEW PATIENT Reason; Screening. Attempted multiple calls to [facility] for records. Fax sent on 06/06 Prior hx of colo/egd? Pt denies hx at this time. Concerns/Questions? No significant concerns at this time. Special Police Officer Required: Yes Special Police Officer Services: Special Police Officer Present Special Police Officer Name: Daysi Álvarez [id number]. [facility] - GI Information Interpreted: non-clinical & clinical Accompanied by: Family/Other Allergies No Known Allergies [No Known Allergies*] Allergy (Verified 06/14/24 10:12) HPI HPI Colonoscopy Screening: Details: 64 year old? female with past medical history of hyperlipidemia, uterine myoma is here today for pre colonoscopy screening.? Patient was sent to us by her PCP.? This is his/her first colonoscopy screening.? Patient denies any gastrointestinal symptoms in the past or at present.? Denies any personal or family history of gastrointestinal disease, colon polyps, or CRC.? Denies history of difficulty with sedation or anesthesia in the past.? Negative for history of sleep apnea.? Denies any history of cardiac, renal, pulmonary, or hepatic disease.?? No history of infectious? diseases like hepatitis A, B, C, HIV or tuberculosis.? 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 Sexual orientation: Straight/Heterosexual Gender identity: Female Review of Systems Const Denies weight gain and Denies weight loss ENT Reports no additional complaints, Denies dysphagia and Denies odynophagia Card Reports no additional complaints Resp Reports no additional complaints GI Denies abdominal pain, Denies belching, Denies melena, Denies bloating, Denies change in bowel habits, Denies dysphagia, Denies excessive flatus, Denies dyspepsia, Denies heartburn, Denies diarrhea, Denies loose stools, Denies nausea, Denies odynophagia and Denies vomiting Musc Reports no additional complaints Neuro Reports no additional complaints Psych Reports no additional complaints Endo Reports no additional complaints Physical Exam Vital Signs: Last Vital Signs Pulse 100 06/14/24 10:12 BP 144/82 H 06/14/24 10:12 Pulse Ox 98 06/14/24 10:12 Oxygen Delivery Method Room Air 06/14/24 10:12 BMI result Body Mass Index 24.4 Const General: healthy appearing, no acute distress and well developed Nutritional Appearance: well nourished Orientation/consciousness: patient oriented x3 Resp Effort & Inspection: normal respiratory effort, able to speak in complete sentences, no tracheal deviation and symmetric chest movement Auscultation: clear to auscultation bilaterally Cardio Rate: regular rate GI Inspection: Yes normal to inspection and No distended Palpation (GI): Soft to palpation, not firm, nontender and No hepatosplenomegaly present Auscultation: normal bowel sounds General: Yes no CVA tenderness Back/Spine/Pelvis Back: no CVA tenderness Skin General skin exam: elasticity normal, turgor normal and dry skin Neuro General: patient oriented x3 Psych Appearance: grossly normal Mental Status: mental status grossly normal Assessment & Plan Assessment & Plan (1) Screen for colon cancer: Code(s): Z12.11 - Encounter for screening for malignant neoplasm of colon Plan Patient denies any GI, cardiac or respiratory symptoms.? Denies any issues with anesthesia in the past.? Denies any history of sleep apnea.? No history infectious diseases in the past or present.? Not on any anticoagulation therapy.? No family or personal history of colon cancer or polyps.? Patient denies melena, hematochezia, unintentional weight loss or ribbon like stools.? Discussed at length the pre-procedure,? prep, diet & medications as well as what to expect prior, during and after the procedure.?? Stressed the importance of good bowel prep.? Recommended the use of Vaseline or Calmoseptine OTC & baby wipes with bowel movements to promote comfort.? ?Patient verbalizes understanding and agrees to plan of care.? She was given the opportunity to ask questions and all questions answered.? We will see her after the procedure.? Medications: New bisacodyl (Dulcolax (bisacodyl)) 10 mg (2 x 5 mg) PO BEDTIME 180 tabs 4RF polyethylene glycol 3350 (Miralax) As directed by gastroenterology department at [facility] 238 grams PO ONCE 238 grams 0RF Z12.11 - Encounter for screening for malignant neoplasm of colon Coding Level of Care Code New Pt Level 3 (91469) Diagnoses Screen for colon cancer Z12.11 Time Spent (min) 40 Comment 30 minutes spent with patient and additional 10 minutes spent reviewing her records
[2024-06-14 10:12] VITALS: BP 144/82; PULSE 100; O2SAT 98; BMI 24.4
== END 2024-06-14 10:39 | disposition home or self-care (01) ==
PROVIDERS: PCP Internal Medicine; Visit Provider Nurse Practitioner Family
DX: Z01.818 Encounter for other preprocedural examination (principal); Z12.11 Encounter for screening for malignant neoplasm of colon
CPT/HCPCS: 99202

== ENCOUNTER → 2024-06-14 10:00 | Outpatient (BNVA) | payer MEDICAID, SELFPAY | PROVIDERS: PCP Internal Medicine; Visit Provider Nurse Practitioner Family | DX: Z12.11 Encounter for screening for malignant neoplasm of colon (principal) | CPT/HCPCS: 99212 ==

== ENCOUNTER 2024-08-06 00:58 | Emergency (ER) | payer MEDICAID, SELFPAY ==
--- NOTE | 2024-08-06 | ECG_ITS ---
Test Reason : cp Blood Pressure : */* mmHG Vent. Rate : 110 BPM Atrial Rate : 110 BPM P-R Int : 126 ms QRS Dur : 78 ms QT Int : 322 ms P-R-T Axes : 58 41 50 degrees QTcB Int : 435 ms Sinus tachycardia Otherwise normal ECG No previous ECGs available Referred By: Generic ED Physician Electronically Signed By: VASYL BARRON
[2024-08-06 01:08] VITALS: BP 177/103; PULSE 122; RESP 17; TEMP 36.7; O2SAT 100; BMI 24.2
[2024-08-06 01:30] LABS: MANUAL DIFF FLAG NO
[2024-08-06 01:31] LABS: Basophils Percent Auto 0.7 % (0-2); Eosinophils Absolute Auto 0.1 X10*3/uL (0.0-0.4); Eosinophils Percent Auto 2.5 % (0-4); Hematocrit 37.1 % (37.0-47.0); Imm Gran Abs Auto 0.02 X10*3/uL (0.00-0.03); Imm Gran Pct Auto 0.4 % (0.0-0.4); Lymphocytes Absolute Auto 2.6 X10*3/uL (1.2-4.9); Lymphocytes Percent Auto 45.8 % (20-40); Mean Corpuscular Hemoglobin 28.6 pg (27.0-33.0); Mean Corpuscular Volume 81.7 fL (80.0-98.0); Mean Platelet Volume 9.6 fL (9.4-12.3); Monocytes Absolute Auto 0.6 X10*3/uL (0.1-1.2); Monocytes Percent Auto 9.9 % (2-11); Neutrophils Absolute Auto 2.3 x10*3/uL (2.0-8.3); Neutrophils Percent Auto 40.7 % (45-73); Platelet Count 249 X10*3/uL (160-400); Red Blood Count 4.54 X10*6/uL (4.20-5.50); Red Cell Distribution Width 12.9 % (11.0-16.0); White Blood Count 5.6 X10*3/uL (4.8-10.8)
[2024-08-06 01:58] LABS: Alanine Aminotransferase 19 U/L (0-31); Anion Gap 12 (12-20); Aspartate Amino Transferase 20 U/L (5-31); Bilirubin Total 0.3 mg/dL (0.0-1.0); Blood Urea Nitrogen 13 mg/dL (9-16); Calcium 9.4 mg/dL (8.4-10.2); Carbon Dioxide 22 mmol/L (22-29); Chloride 112 mmol/L (96-108); Estimated Glomerular Filt Rate > 60; Glucose Random 128 mg/dL (60-115); Potassium 3.9 mmol/L (3.3-5.1); Sodium 142 mmol/L (135-145); Total Protein 7.3 g/dL (6.5-8.0)
[2024-08-06 02:02] LABS: Troponin-I High Sensitivity < 2.7 ng/L (<3.5-17.0)
[2024-08-06 03:16] LABS: Alkaline Phosphatase 131 U/L (39-117)
[2024-08-06 04:12] VITALS: BP 145/83; PULSE 77; RESP 16; TEMP 36.8; O2SAT 97
--- NOTE | 2024-08-06 04:24 | ED.ARRPALP ---
HPI - Arrhythmia/Palpitations General Chief Complaint: Arrhythmia/Palpitations Stated Complaint: chest pain Time Seen by Provider: 08/06/24 03:50 Source: patient, family ( daughter) and scrap burner Mode of arrival: ambulatory Limitations: no limitations History of Present Illness ED Provider: DR. De Jesus HPI narrative: 64-year-old female came in after having 1 episode of palpitation while she was sleeping, lasted for about 10-15 minutes was associated with headache, no relieving factor, no aggravating factor, patient had similar episode in the past never seek medical attention for it, patient now feels back to her normal, no palpitation, no chest pain, no shortness of breath. Related Data Home Medications ?Medication ?Instructions ?Recorded ?Confirmed atorvastatin 40 mg tablet 40 mg PO QAM 11/20/23 calcium 600 mg (as 1 tab PO DAILY 06/14/24 carbonate)-vitamin D3 5 mcg (200 unit) tablet Previous Rx's ?Medication ?Instructions ?Recorded bisacodyl 5 mg tablet,delayed 10 mg (2 x 5 mg) PO BEDTIME #180 06/14/24 release (Dulcolax (bisacodyl)) tabs polyethylene glycol 3350 17 238 g PO ONCE #238 grams 06/14/24 gram/dose oral powder (Miralax) Allergies Allergy/AdvReac Type Severity Reaction Status Date / Time No Known Allergies Allergy Verified 08/06/24 01:11 [No Known Allergies*] Review of Systems Review of Systems: All other systems are reviewed and are negative Constitutional: Reports as per HPI and Reports no additional constitutional complaints Eyes: Reports as per HPI and Reports no additional eye complaints Reports system reviewed and no additional complaints, except as documented Cardiovascular: Reports as per HPI and Reports no additional cardiovascular complaints Respiratory: Reports as per HPI and Reports no additional respiratory complaints Gastrointestinal: Reports as per HPI and Reports no additional gastrointestinal complaints Genitourinary: Reports no additional female genitourinary complaints Musculoskeletal: Reports no additional musculoskeletal complaints Skin/Breast: Reports system reviewed and no additional complaints, except as docu Psychiatric: Reports no additional psychiatric complaints Endocrine: Reports no additional endocrine complaints Hematologic/Lymphatic: Reports no additional hematologic/lymphatic complaints Allergic/Immunologic: Reports no additional allergic/immunologic complaints Reports system reviewed and no additional complaints, except as documented and Reports Abnormal speech present [facility] Past Medical History Medical History Hyperlipidemia Seasonal allergic reaction Surgical History Hx of tubal ligation Family History Family History Mother HTN (hypertension) Diabetes Sister Kidney disease Father Lung cancer Throat cancer Social History Social History Household Members: Spouse Household Members Other:: daughter Housing: Apartment Alcohol intake: current Alcohol intake frequency: holidays/special occasions only Patient Tobacco Use Status: Never used Tobacco Advance Directives: No Advance Directives Information Provided: Yes Do you have a plan to hurt others: No Plan Current occupational status: employed 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 Blood pressure elevated. Heart rate normal. Respiratory rate normal. Temperature normal. Oxygen saturation normal. Appearance: Alert. Oriented X3. No acute distress. Head: Normal external exam. Normocephalic. Atraumatic. No Grimes signs noted. No raccoon eyes noted Eyes: PERRLA. EOMI. Conjunctiva and sclera normal. Eyelids normal. ENT: TM's Normal. Pharynx normal. Uvula midline. Moist mucous membranes. No trismus noted. No drooling noted. No muffled voice noted. Neck: Normal inspection. Neck supple. FROM. No adenopathy. Thyroid Normal. No meningeal signs. No neck mass noted. CVS: Normal heart rate and rhythm. Heart sound normal. No murmurs noted. Pulses normal throughout. Respiratory: No respiratory distress. Painless inspiration. Breath sounds normal. No wheezes/rales/rhonchi noted. Chest nontender. No accessory muscle usage noted or decreased air movement noted. Abdomen: Soft and nontender. Bowel sounds normal in all 4 quadrants. No distention noted. No organomegaly noted. No visible injury noted. Back: No CVA tenderness. Full range of motion noted. Skin: Skin warm and dry. Normal skin color. Normal skin turgor. No rashes/lesions/lacerations noted. Extremities: No lower extremity edema. Extremities exhibit normal range of motion. Extremities nontender. Neuro: Oriented X 3. Cranial nerve exam: II-XII are grossly intact No motor deficit. No sensory deficit. Reflexes normal. Course Reevaluation(s) Reevaluation #1: 64-year-old female history of chest palpitation came in after having 1 episode of palpitation that improved while she is in the emergency department, 1st EKG showed sinus tachycardia that improved to normal sinus rhythm. No chest pain, negative troponin x2. Patient will be discharge to follow-up with a plant technician. Time: 04:27 Reevaluation #2: repeat EKG shows normal sinus rhythm at 81 beats per minutes. Time: 05:01 Medical Decision Making Differential Diagnosis Differential Diagnoses: The differential diagnosis associated with the presentation includes ( atrial fibrillation, dysrhythmia ACS, electrolyte derangement, severe anemia, thyroid disorder, anxiety.) Admission/Observation Consideration of admission/observation: Escalation of care including admission/observation considered Lab Data MDM Lab Attestation statement: I reviewed the patient's lab results. 08/06/24 01:26 08/06/24 01:26 Labs: Lab Results 08/06/24 08/06/24 Range/Units 01:26 04:18 WBC 5.6 (4.8-10.8) X10*3/uL RBC 4.54 (4.20-5.50) X10*6/uL Hgb 13.0 (12.0-16.0) g/dl Hct 37.1 (37.0-47.0) % MCV 81.7 (80.0-98.0) fL MCH 28.6 (27.0-33.0) pg MCHC 35.0 (31.0-35.0) g/dl RDW 12.9 (11.0-16.0) % Plt Count 249 D (160-400) X10*3/uL MPV 9.6 (9.4-12.3) fL Immature Gran % (Auto) 0.4 (0.0-0.4) % Neut % (Auto) 40.7 L (45-73) % Lymph % (Auto) 45.8 H (20-40) % [place] % (Auto) 9.9 (2-11) % Eos % (Auto) 2.5 (0-4) % Baso % (Auto) 0.7 (0-2) % Lymph # (Auto) 2.6 (1.2-4.9) X10*3/uL [place] # (Auto) 0.6 (0.1-1.2) X10*3/uL Eos # (Auto) 0.1 (0.0-0.4) X10*3/uL Baso # (Auto) 0.0 (0.0-0.2) X10*3/uL Abs Immat Gran (auto) 0.02 (0.00-0.03) X10*3/uL Absolute Neuts (auto) 2.3 (2.0-8.3) x10*3/uL Absolute Nucleated RBC 0.000 (0.0-0.012) X10*3/uL Nucleated RBC % (auto) 0.0 (0.0-0.2) /100WBC Sodium 142 (135-145) mmol/L Potassium 3.9 (3.3-5.1) mmol/L Chloride 112 H (96-108) mmol/L Carbon Dioxide 22 (22-29) mmol/L Anion Gap 12 (12-20) BUN 13 (9-16) mg/dL Creatinine 0.77 (0.5-1.4) mg/dL Estim Creat Clear Calc 57.0 Estimated GFR > 60 Random Glucose 128 H (60-115) mg/dL Calcium 9.4 D (8.4-10.2) mg/dL Total Bilirubin 0.3 (0.0-1.0) mg/dL AST 20 (5-31) U/L ALT 19 (0-31) U/L Alkaline Phosphatase 131 H (39-117) U/L Troponin I High Sens < 2.7 < 2.7 (<3.5-17.0) ng/L Total Protein 7.3 (6.5-8.0) g/dL Albumin 4.0 (3.5-5.0) g/dL Independent Interpretation I performed an independent interpretation of an: EKG ( Sinus tachycardia at 110 beats per minutes, normal intervals, no ST-T changes, no previous EKG to compare.) Discharge Plan Discharge Clinical Impression: Palpitation Patient Disposition: Still a Patient Instructions: Heart Palpitations (ED) Prescriptions: No Action atorvastatin 40 mg tablet 40 mg PO QAM calcium carbonate-vitamin D3 600 mg-5 mcg (200 unit) tablet 1 tab PO DAILY bisacodyl [Dulcolax (bisacodyl)] 5 mg tablet,delayed release (DR/EC) 10 mg PO BEDTIME Qty: 180 4RF polyethylene glycol 3350 [Miralax] 17 gram/dose powder 238 g PO ONCE Qty: 238 0RF Rx Instructions: As directed by gastroenterology department at [facility] Referrals: Vinay Dey MD [Physician] - Print Language: Irish
--- NOTE | 2024-08-06 04:28 | ECG_ITS ---
Test Reason : palpitations Blood Pressure : */* mmHG Vent. Rate : 81 BPM Atrial Rate : 81 BPM P-R Int : 120 ms QRS Dur : 80 ms QT Int : 352 ms P-R-T Axes : 59 18 44 degrees QTcB Int : 408 ms Normal sinus rhythm Normal ECG When compared with ECG of 06-Aug-2024 01:02, No significant change was found Referred By: Leanne De Jesus Electronically Signed By: VASYL BARRON
[2024-08-06 04:46] LABS: Troponin-I High Sensitivity < 2.7 ng/L (<3.5-17.0)
[2024-08-06 05:04] LABS: Thyroid Stimulating Hormone 2.22 uIU/mL (0.32-4.0)
[2024-08-06 05:38] VITALS: BP 145/83; PULSE 74; RESP 18; TEMP 36.8; O2SAT 97
== END 2024-08-06 05:39 | disposition home or self-care (01) ==
PROVIDERS: Emergency Provider Emergency Medicine
DX: I49.9 Cardiac arrhythmia, unspecified (principal); R00.2 Palpitations; R07.89 Other chest pain; Z79.899 Other long term (current) drug therapy
CPT/HCPCS: 36415; 80053; 84443; 84484; 85025; 93005; 99283

== ENCOUNTER → 2024-08-06 01:02 | Outpatient (BNV) | payer MEDICAID, SELFPAY | PROVIDERS: Emergency Provider Emergency Medicine; Visit Provider Internal Medicine | DX: R00.0 Tachycardia, unspecified (principal); R00.2 Palpitations | CPT/HCPCS: 93010 ==